=== PATIENT | male | born 1990 | race Two or more races ===

== ENCOUNTER 2019-01-10 16:11 | Emergency (ER) | payer OTHER ==
[~2019-01-10] VITALS: Ht 332.7 cm; Wt 63.0 kg
[2019-01-10] MEDS ORDERED: ASPIRIN 325MG TABLET PO ONE (18:15)
[2019-01-10 18:40] LABS: BASOPHILS % 0.7 % (0.0-2.0); EOSINOPHILS % 0.2 % (0.0-5.0); HEMATOCRIT. 43.1 % (42.0-52.0); HEMOGLOBIN. 14.8 g/dL (14.0-18.0); MEAN CORPUSCULAR HEMOGLOBIN 32.3 pg (28.0-32.0); MEAN CORPUSCULAR VOLUME 94.2 fL (80.0-94.0); MONOCYTES % 4.9 % (2.0-8.0); NEUTROPHILS % 84.2 % (40.0-76.0); PLATELET 261 x1000/uL (130-400); RED BLOOD CELL COUNT 4.58 mill/uL (4.7-6.1); RED CELL DISTRIBUTION WIDTH 13.5 % (11.6-14.6)
[2019-01-10 18:41] LABS: CHLORIDE 108 mEq/L (98-107)
[2019-01-10 19:38] VITALS: BP 128/90
== END 2019-01-10 20:13 | disposition home or self-care (01) ==
LOC: ER 16:11
DX: R07.89 Other chest pain (principal); R94.31 Abnormal electrocardiogram [ECG] [EKG]
CPT/HCPCS: 36415; 71045; 83880; 84484; 93005; 99284